=== PATIENT | male | born 1990 | race African-American/Black ===

== ENCOUNTER 2021-12-29 08:28 | Emergency (ER) | payer OTHER ==
[~2021-12-29] VITALS: Ht 172.7 cm; Wt 79.8 kg
[2021-12-29 08:31] VITALS: BP 129/76; TEMP 98.8
== END 2021-12-29 09:48 | disposition home or self-care (01) ==
LOC: ED 08:28
DX: J20.9 Acute bronchitis, unspecified (principal); J10.1 Influenza due to other identified influenza virus with other respiratory manifestations; Z20.822 Contact with and (suspected) exposure to COVID-19
CPT/HCPCS: 87502; 87635; 87651; 99282; U0003

== ENCOUNTER 2022-03-28 16:44 | Emergency (ER) | payer OTHER ==
[~2022-03-28] VITALS: Ht 170.2 cm; Wt 78.5 kg
[2022-03-28 16:52] VITALS: BP 160/74; TEMP 99.2
== END 2022-03-28 17:35 | disposition home or self-care (01) ==
LOC: ED 16:44
DX: H65.191 Other acute nonsuppurative otitis media, right ear (principal); J06.9 Acute upper respiratory infection, unspecified
CPT/HCPCS: 96372; 99283; J0696